=== PATIENT | male | born 1980 | race Caucasian/White ===

== ENCOUNTER 2017-07-05 10:39 | Emergency (ER) | payer SELFPAY ==
[2017-07-05 11:24] LABS: #Eosinphils 0.1 thou/uL (0.0-0.7); #Lymphocytes 1.4 thou/uL (1.20-3.40); #Monocytes 0.7 thou/uL (0.11-0.59); #Neutrophils 8.8 thou/uL (1.40-6.50); %Basophils 0.4 % (0.0-1.0); %Eosinophils 1.1 % (0.0-10.0); %Lymphocytes 12.7 % (21.0-51.0); %Monocytes 6.3 % (0.0-10.0); %Neutrophils 79.4 % (42.0-75.0); Hemoglobin 16.1 g/dL (14.0-18.0); Mean Corpuscular HGB CONC 33.8 g/dL (32.0-36.0); Mean Platelet Volume 6.7 fL (7.4-10.4); Platelet Count 227 thou/uL (130-400); RBC Distribution Width 11.6 % (11.5-14.5); Red Blood Cell (RBC) Count 5.37 mill/uL (4.70-6.10)
[2017-07-05] MEDS ORDERED: Lidocaine 1% 20 ML MDV ONE (11:35)
[2017-07-05 11:36] LABS: Anion Gap 13 mmol/L (10-20); BUN (Urea Nitrogen) 12 mg/dL (8.9-20.6); Calc. Creatinine Clearance 0 mL/min (70-130); Calcium 9.4 mg/dL (7.8-10.44); Carbon Dioxide 25 mmol/L (22-29); Chloride 106 mmol/L (98-107); Estimated GFR-MDRD Greater than 90; Glucose 127 mg/dL (70-105); Potassium 4.1 mmol/L (3.5-5.1); Sodium 140 mmol/L (136-145)
[2017-07-05] MEDS ORDERED: Bacitracin Zinc 1 Packet ONE (11:48)
[2017-07-05 12:02] LABS: INR-International Normal Ratio 1.5; Prothrombin Time 18.9 SEC (12.0-14.7)
--- NOTE | 2017-07-05 19:55 | RAD ---
LEFT HAND THREE VIEWS 07/05/2017 No acute fracture was seen. There is fusion of the DIP joint of the third finger which may be due t o old trauma. The carpal relations appear normal. IMPRESSION: No acute findings. POS: HOME
== END 2017-07-05 13:05 | disposition home or self-care (01) ==
LOC: BURERS 10:39
DX: L03.012 Cellulitis of left finger (principal); F17.210 Nicotine dependence, cigarettes, uncomplicated; W29.8XXA Contact with other powered hand tools and household machinery, initial encounter
CPT/HCPCS: 10060; 80048; 85025; 85610; 85652; 87070; 87077; 87186; 87205; 96365; 96375; 96376; J2001; J2270; J3370

== ENCOUNTER 2019-05-08 18:06 | Emergency (ER) | payer OTHER, SELFPAY | END 2019-05-08 18:38 | disposition home or self-care (01) | LOC: BURERS 18:06 | DX: S09.90XA Unspecified injury of head, initial encounter (principal); E86.0 Dehydration; I95.1 Orthostatic hypotension; F98.8 Other specified behavioral and emotional disorders with onset usually occurring in childhood and adolescence; F17.210 Nicotine dependence, cigarettes, uncomplicated; W22.03XA Walked into furniture, initial encounter | CPT/HCPCS: 99283 ==

== ENCOUNTER 2021-07-29 19:34 | Emergency (ER) | payer SELFPAY ==
[2021-07-29] MEDS ORDERED: Fluorescein Opthalmic Strip ONE (19:49)
[2021-07-29] MEDS ORDERED: Tetracaine 0.5% PF 4 ML BOT ONE (19:49)
== END 2021-07-29 20:13 | disposition home or self-care (01) ==
LOC: BURERS 19:34
DX: H54.62 Unqualified visual loss, left eye, normal vision right eye (principal); H57.12 Ocular pain, left eye; F17.210 Nicotine dependence, cigarettes, uncomplicated
CPT/HCPCS: 99283

== ENCOUNTER 2021-09-29 21:42 | Emergency (ER) | payer SELFPAY | END 2021-09-29 23:22 | disposition home or self-care (01) | LOC: BURERS 21:42 | DX: J01.00 Acute maxillary sinusitis, unspecified (principal); I25.2 Old myocardial infarction; Z86.73 Personal history of transient ischemic attack (TIA), and cerebral infarction without residual deficits; F17.210 Nicotine dependence, cigarettes, uncomplicated | CPT/HCPCS: 70450 ==